=== PATIENT | female | born 1990 | race Caucasian/White ===

== ENCOUNTER 2016-11-02 12:53 | Emergency (ER) | payer OTHER ==
[~2016-11-02] VITALS: Ht 152.4 cm; Wt 75.0 kg
[~2016-11-02 12:53] MED LIST: CLIN-73 PO; MUPI22OI2 TOP; NORE1TAB75 PO
[2016-11-02 13:06] VITALS: Ht 152.4 cm; Wt 75.0 kg
[2016-11-02] MEDS ORDERED: BACITRACIN 0.9 GM OINT TOP ONE (14:30)
[2016-11-02] MEDS ORDERED: CEPH500C PO (14:40)
[2016-11-02] MEDS ORDERED: MUPI22OI2 TOP (14:40)
[2016-11-02 15:02] VITALS: BP 119/65; PULSE 75; RESP 19; TEMP 98.3
--- NOTE | 2016-11-02 15:13 | ERD ---
ER Documentation Chief Complaint Date/Time DATE: 11/02/16 TIME: 15:08 Chief Complaint BILAT FEET BLISTERS HPI This is a 26-year-old female presents to the ER with blisters on bilateral feet. Patient states that she usually gets these blisters every summer and that they are very painful. Patient has been applying bacitracin and hydrocortisone on blisters however they are not getting better. Patient was seen here 1 year ago for same complaints, and was given oral antibiotics, she states that this helped her. Patient does have an appointment with her manager of creative services on Saturday. Patient denies any fevers or chills ROS 12 point review of systems was done, all negative except per HPI. Medications Home Meds Active Scripts Cephalexin* (Cephalexin*) 500 Mg Capsule, 500 MG PO BID for 7 Days, #28 CAP Prov:ROHINI GATICA 11/02/16 Mupirocin* (Bactroban*) 2% -22 Gram Oint...g., 1 APPLIC TOP BID for 7 Days, EA Prov:ROHINI GATICA 11/02/16 Clindamycin Hcl* (Clindamycin Hcl*) 300 Mg Capsule, 300 MG PO TID for 7 Days, CAP Prov:JUDITH MARC PA-C 10/30/15 Mupirocin* (Bactroban*) 2% -22 Gram Oint...g., 1 APPLIC TOP BID for 7 Days, EA Prov:JUDITH MARC PA-C 10/30/15 Reported Medications Norethindrone A-E Estradiol (Microgestin 1.5-30) Unknown Strength Tablet, PO DAILY, TAB 12/29/13 Allergies Allergies: Coded Allergies: No Known Allergy (Verified , 11/02/16) PMhx/Soc History of Surgery: Yes ( delivery) Anesthesia Reaction: No Hx Neurological Disorder: No Hx Respiratory Disorders: No Hx Cardiac Disorders: No Hx Psychiatric Problems: No Hx Miscellaneous Medical Probl: No Hx Alcohol Use: No Hx Substance Use: No Hx Tobacco Use: No Physical Exam Vitals Vital Signs Date Time Temp Pulse Resp B/P Pulse Ox O2 Delivery O2 Flow Rate FiO2 11/02/16 15:02 98.3 75 19 119/65 100 Room Air 11/02/16 13:06 97.9 75 19 134/75 100 Physical Exam GENERAL: The patient is well developed and appropriate for usual state of health , in no apparent distress. HEENT: Atraumatic CHEST: Clear to auscultation bilaterally. There are no rales, wheezes or rhonchi. HEART: Regular rate and rhythm. No murmurs, clicks, rubs or gallops. EXTREMITIES: Equal pulses bilaterally. There is no peripheral clubbing, cyanosis or edema. No focal swelling or erythema. Full range of motion. Grossly neurovascularly intact. NEURO: Alert and oriented. SKIN: there are multiple vesicular lesions to the dorsal foot. There is no surrounding erythema, edema, warmth to the touch, discharge. Results 24 hrs Current Medications Medications (Trade) Dose Ordered Sig/Jane Route PRN Reason Start Time Stop Time Status Last Admin Dose Admin Bacitracin (Bacitracin Oint (Ud)) 1 applic ONCE ONCE TOP 11/02/16 14:30 11/02/16 14:31 DC 11/02/16 14:54 Procedures/MDM This is a 26-year-old female that presents to the ER for bilateral foot blisters. Patient will be sent home with Keflex and mupirocin as this helped patient last time and area has become even worse over the last few days. At this time patient is afebrile and well-appearing. She does not have any history of trauma, fever, chills I doubt deep space infection, osteomyelitis, acute compartment syndrome. Patient was told to follow-up with her primary care doctor or return to ER sooner if symptoms worsen. My medical decision making shared with the patient she understands and agrees with plan. Departure Diagnosis: Primary Impression: Blister of foot Condition: Stable Patient Instructions: Cellulitis Additional Instructions: Call your primary care doctor TOMORROW for an appointment during the next 1-2 days.See the doctor sooner or return here if your condition worsens before your appointment time. ROHINI GATICA Nov 02, 2016 15:13
== END 2016-11-02 15:17 | disposition home or self-care (01) ==
LOC: FTE 12:53
DX: R23.8 Other skin changes (principal)
CPT/HCPCS: 99284

== ENCOUNTER 2018-07-25 23:09 | Emergency (ER) | payer OTHER ==
[~2018-07-25] VITALS: Ht 152.4 cm; Wt 75.5 kg
[~2018-07-25 23:09] MED LIST changes: +CEPH500C PO; -CLIN-73 PO; +CLIN300C10 PO
[2018-07-25 23:12] VITALS: BP 131/60; PULSE 84; RESP 16; Ht 152.4 cm; Wt 75.5 kg
--- NOTE | 2018-07-26 02:14 | ERD ---
ER Documentation Chief Complaint Chief Complaint Upper abd pain, 13 wks preg denies bleeding HPI 28-year-old female, G2, P1 with EGA 16 weeks, presents to the emergency department, complaining of right upper quadrant abdominal pain, sharp, intermittent, 07/09. The patient denies vaginal bleeding, no urinary symptoms, no nausea or vomiting, no fever or chills. ROS All systems reviewed and are negative except as per history of present illness. Medications Home Meds Active Scripts Acetaminophen* (Tylenol*) 325 Mg Tablet, 2 TAB PO Q6 PRN for PAIN AND OR ELEVATED TEMP, #20 TAB Prov:PATRICIA YATES MD 07/26/18 Cephalexin* (Cephalexin*) 500 Mg Capsule, 500 MG PO BID for 7 Days, #28 CAP Prov:ROHINI GATICA 11/02/16 Mupirocin* (Bactroban*) 2% -22 Gram Oint...g., 1 APPLIC TOP BID for 7 Days, EA Prov:ROHINI GATICA 11/02/16 Clindamycin Hcl* (Clindamycin Hcl*) 300 Mg Capsule, 300 MG PO TID for 7 Days, CAP Prov:JUDITH MARC PA-C 10/30/15 Mupirocin* (Bactroban*) 2% -22 Gram Oint...g., 1 APPLIC TOP BID for 7 Days, EA Prov:JUDITH MARC PA-C 10/30/15 Reported Medications Norethindrone A-E Estradiol (Microgestin 1.5-30) Unknown Strength Tablet, PO DAILY, TAB 12/29/13 Allergies Allergies: Coded Allergies: No Known Allergy (Verified , 07/26/18) PMhx/Soc Medical and Surgical Hx: pt denies Medical Hx History of Surgery: Yes ( delivery) Anesthesia Reaction: No Hx Neurological Disorder: No Hx Respiratory Disorders: No Hx Cardiac Disorders: No Hx Psychiatric Problems: No Hx Miscellaneous Medical Probl: No Hx Alcohol Use: No Hx Substance Use: No Hx Tobacco Use: No Smoking Status: Never smoker FmHx Family History: No diabetes, No coronary disease Physical Exam Vitals Vital Signs Date Temp Pulse Resp B/P (MAP) Pulse Ox O2 O2 Flow FiO2 Time Delivery Rate 07/25/18 98.1 84 16 131/60 100 23:12 (83) Physical Exam Const: No acute distress Head: Atraumatic Eyes: Normal Conjunctiva ENT: Normal External Ears, Nose and Mouth. Neck: Full range of motion. No meningismus. Resp: Clear to auscultation bilaterally Cardio: Regular rate and rhythm, no murmurs Abd: Soft, non tender, non distended. Normal bowel sounds Skin: No petechiae or rashes Back: No midline or flank tenderness Ext: No cyanosis, or edema Neur: Awake and alert Psych: Normal Mood and Affect Result Diagram: 07/26/188 07/26/188 Results 24 hrs Laboratory Tests Test 07/26/18 02:38 White Blood Count 12.0 10^3/ul Red Blood Count 4.24 10^6/ul Hemoglobin 12.3 g/dl Hematocrit 36.2 % Mean Corpuscular Volume 85.4 fl Mean Corpuscular Hemoglobin 29.0 pg Mean Corpuscular Hemoglobin Concent 34.0 g/dl Red Cell Distribution Width 13.1 % Platelet Count 212 10^3/UL Mean Platelet Volume 10.9 fl Immature Granulocytes % 0.700 % Neutrophils % 71.6 % Lymphocytes % 21.0 % Monocytes % 5.3 % Eosinophils % 1.1 % Basophils % 0.3 % Nucleated Red Blood Cells % 0.0 /100WBC Immature Granulocytes # 0.080 10^3/ul Neutrophils # 8.6 10^3/ul Lymphocytes # 2.5 10^3/ul Monocytes # 0.6 10^3/ul Eosinophils # 0.1 10^3/ul Basophils # 0.0 10^3/ul Nucleated Red Blood Cells # 0.0 10^3/ul Urine Color YELLOW Urine Clarity SLIGHTLY CLOUDY Urine pH 7.0 Urine Specific [place] 1.010 Urine Ketones NEGATIVE mg/dL Urine Nitrite NEGATIVE mg/dL Urine Bilirubin NEGATIVE mg/dL Urine Urobilinogen NEGATIVE mg/dL Urine Leukocyte Esterase NEGATIVE [place]/ul Urine Microscopic RBC 1 /HPF Urine Microscopic WBC 1 /HPF Urine Squamous Epithelial Cells FEW /HPF Urine Amorphous Crystals MANY /HPF Urine Mucus FEW /HPF Urine Hemoglobin NEGATIVE mg/dL Urine Glucose NEGATIVE mg/dL Urine Total Protein NEGATIVE mg/dl Sodium Level 140 mmol/L Potassium Level 4.0 mmol/L Chloride Level 108 mmol/L Carbon Dioxide Level 24 mmol/L Anion Gap 8 Blood Urea Nitrogen 5 mg/dl Creatinine 0.53 mg/dl Est Glomerular Filtrat Rate mL/min > 60 mL/min Glucose Level 94 mg/dl Calcium Level 9.6 mg/dl Total Bilirubin 0.1 mg/dl Direct Bilirubin 0.00 mg/dl Indirect Bilirubin 0.1 mg/dl Aspartate Amino Transf (AST/SGOT) 24 IU/L Alanine Aminotransferase (ALT/SGPT) 28 IU/L Alkaline Phosphatase 74 IU/L Total Protein 7.2 g/dl Albumin 3.9 g/dl Globulin 3.30 g/dl Albumin/Globulin Ratio 1.18 Lipase 49 U/L Patient: BRIAN ABERNATHY : 1990 Age: 28 Sex: F MR #: [id number] DOS: 07/26/18 0213 Ordering MD: PATRICIA YATES MD Location: [facility] Room/Bed: PROCEDURE: US Abdomen. CLINICAL INDICATION: Pain TECHNIQUE: Multiple real-time images were acquired of the patient's abdomen and retroperitoneum utilizing a high resolution transducer. COMPARISON: None FINDINGS: The gallbladder is distended with possible mild sludge. No gallstones or gallbladder wall thickening. No pericholecystic fluid. Common bile duct prominent maximal transverse diameter 4.91 mm. No intrahepatic biliary ductal dilation. Liver normal in size maximal sagittal mention 15.66 cm. Normal liver parenchymal echogenicity without focal lesions. The pancreas was incompletely visualized however those portions that could be visualized are unremarkable. Normal portal venous flow. Right kidney normal in size maximal sagittal dimension 9.93 cm. Normal right renal parenchymal echogenicity without hydronephrosis intra renal mass or calculus. IMPRESSION: 1. Possible mild sludge within the gallbladder which is otherwise unremarkable without wall thickening, pericholecystic fluid and negative biliary ductal dilation. 2. Unremarkable liver pancreas and right kidney. RPTAT:AAJJ Physician Lucero Date Time Electronically viewed and signed by Physician Lucero on 07/26/2018 04:01 BM/ CC: PATRICIA YATES MD Procedures/MDM Vital signs stable. Differential diagnosis include but not limited to: UTI, colitis, gastroenteritis, kidney stones, irritable bowel syndrome, inflammatory bowel syndrome, malabsorption syndrome, cholelithiasis, food intolerance, medication side effect, pancreatitis, diverticulitis, bowel obstruction. Physical examination and clinical presentation consistent most likely with Biliary colic during , no evidence of acute cholecystitis.. During the ED course the patient remained stable, no new complaints. Results and clinical impression discussed with the patient who agrees with management. The patient is stable to be treated outpatient and will be discharged home; some side effects of prescribed medications (headache, rash, nausea, vomiting, diarrhea, drowsiness, habituation, bleeding, hypertension, interactions with other medications) were reviewed. The patient was informed that the evaluation in the emergency department has been done to rule out an acute emergency, therefore, chronic conditions like malignancy or other diseases have not been evaluated; therefore, the patient was instructed to follow up with the primary care provider in the next 48h. If symptoms persist, worsen or new symptoms develop, then patient should return to the ED immediately. Instructions explained and given directly by me to the patient with acknowledgment and demonstrated understanding. Disclaimer: Inadvertent spelling and grammatical errors are likely due to EHR/dictation software use and do not reflect on the overall quality of patient care. Also, please note that the electronic time recorded on this note does not necessarily reflect the actual time of the patient encounter. Departure Diagnosis: Primary Impression: Biliary sludge Additional Impression: 16 weeks gestation of Condition: Stable Additional Instructions: Thank you very much for allowing us to participate in your care. Your health and safety is our top priority at [facility]. The evaluation in the emergency department has been done to rule out an acute e mergency, therefore, chronic conditions like malignancy or other diseases have not been evaluated; therefore, you need to follow up with a primary care provider in the next 48h. If symptoms persist, worsen or new symptoms develop, then patient should return to the ED immediately. Call your primary care doctor TOMORROW for an appointment during the next 2-4 days and bring all the information provided. Have prescriptions filled and follow precisely the directions on the label. If the symptoms get worse and your provider is unavailable, return to the Emergency Department immediately. PTARICIA YATES MD Jul 26, 2018 02:14
[2018-07-26] MEDS ORDERED: ACET325T33 PO (04:10)
== END 2018-07-26 04:25 | disposition home or self-care (01) ==
LOC: FTE 23:09
DX: O99.611 Diseases of the digestive system complicating pregnancy, first trimester (principal); K83.8 Other specified diseases of biliary tract; Z3A.13 13 weeks gestation of pregnancy
CPT/HCPCS: 36415; 76705; 80053; 81001; 83690; 85025; Z7502; 81003

== ENCOUNTER 2018-09-12 13:07 | Outpatient (CLI) | payer OTHER ==
[~2018-09-12] VITALS: Ht 152.4 cm; Wt 78.6 kg
[~2018-09-12 13:07] MED LIST changes: +ACET325T33 PO
[2018-09-12] MEDS ORDERED: PNV11TAB PO (13:52)
[2018-09-12 13:53] VITALS: BP 121/60; PULSE 89; RESP 18; Ht 152.4 cm; Wt 78.6 kg
--- NOTE | 2018-09-12 17:05 | TRIAGE ---
OB Triage Datetime Report Generated by CPN: 09/12/2018 17:04 Datetime: 09/12/2018 16:37 Stage of : OB Triage Datetime: 09/12/2018 16:24 Labor Evaluation Frequency: 0 Monitor Mode: External Pattern: Normal: <= 5 Contractions in 10 Minutes Resting Tone [place]: Relaxed Comments: removed due to gestational age Pain Assessment Pain Scale: 0 Pain Presence: None/Denies Pain Type: N/A Pain Goal: 3 Pain Relief Measures: Comfort Measures Datetime: 09/12/2018 15:28 Comments: removed due to gestatiional age Pain Assessment Pain Scale: 0 Pain Presence: None/Denies Pain Type: N/A Pain Goal: 3 Pain Relief Measures: Comfort Measures Datetime: 09/12/2018 14:36 Labor Evaluation Frequency: 0 Monitor Mode: External Pattern: Normal: <= 5 Contractions in 10 Minutes Resting Tone [place]: Relaxed Comments: removed due to gestational age Pain Assessment Pain Scale: 0 Pain Presence: None/Denies Pain Type: N/A Pain Goal: 3 Pain Relief Measures: Comfort Measures Datetime: 09/12/2018 13:43 Stage of : OB Triage Datetime: 09/12/2018 13:34 Stage of : OB Triage Assessment Type: Triage Maternal Assessment Level of Consciousness: Keenly Alert, Responsive DTR's/Clonus: DTRs 2+; No Clonus Headache: Denies Blurred Vision: No Respiratory Effort: Unlabored; Regular Rhythm; Equal Expansion Breath Sounds, Left: Clear and Equal Breath Sounds, Right: Clear and Equal Nausea/Vomiting: Denies RUQ Epigastric Pain: Denies Facial Edema: None Temperature Route: Axillary Fall Risk Assessment History of Falling: (0) No Secondary Diagnosis: (0) No Ambulatory Aid: (0) Bedrest/Nurse Assist IV Therapy: (0) No Gait: (0) Normal/Bedrest/Immobile Mental Status: (0) Oriented to Own Ability Fall Score: 0 Fall Risk Score Definition: No Risk: No action required Labor Evaluation Frequency: 0 Monitor Mode: External Pattern: Normal: <= 5 Contractions in 10 Minutes Resting Tone [place]: Relaxed Heart Rate FHR Baseline Rate: 140 Monitor Mode: External US Pain Assessment Pain Scale: 0 Pain Presence: None/Denies Pain Type: N/A Pain Goal: 3 Pain Relief Measures: Comfort Measures Datetime: 09/12/2018 13:33 Time of Arrival: 09/12/2018 13:00 EGA: 22.6 Arrived By: Ambulatory Arrived From: Home Chief Complaint: C/O SOB AND GENERALIZED WEAKNESS THIS AM, DENIES PAIN, BLEEDING OR LEAKING Movement: Present Contractions: Denies/Absent Rupture of Membranes: Ruptured Vaginal Bleeding: None Vaginal Discharge: Denies Recent Sexual Intercouse: Denies Abdominal Trauma: Not Applicable Patient Complaints: Shortness of Breath Time Provider Notified: 09/12/2018 13:43 Provider Notified: ubaldo Initial Plan: TOCO, U/S
--- NOTE | 2018-09-24 20:54 | PREOPHP ---
DATE OF ADMISSION: 09/12/2018 HISTORY OF PRESENT ILLNESS: This is a 28-year-old lady, 2, para 1, EDC 01/09/2019, 23 weeks , admitted for observation. She complained of some shortness of breath and weakness in the m orning before she came, but she came to be evaluated. She had care in my [facility] office and the care was uneventful. PAST PERSONAL HISTORY: No history of diabetes, TB or asthma. ALLERGIES: NO ALLERGIES. SOCIAL HISTORY: The patient does not smoke. She does not drink. MEDICATIONS: She does not take any drugs except her iron and vitamins. GYNECOLOGIC HISTORY: She had menarche at the age of 12, every 28 days interval, 3 to 4 days duration , and moderate in amount. FAMILY HISTORY: Mother has hypertension. She is 2, para 1. Her first delivery was in 2012 by at [facility]. REVIEW OF SYSTEMS: CARDIOVASCULAR: No chest pains. RESPIRATORY: No cough. GASTROINTESTINAL: No diarrhea, no vomiting. GENITOURINARY: No dysuria. PHYSICAL EXAMINATION: GENERAL: Reveals a conscious, coherent lady in no acute distress. VITAL SIGNS: Blood pressure 120/80, pulse rate 80 per minute, respirations 16 per minute. BREASTS: Within normal limits. HEART: Within normal limits. LUNGS: Within normal limits. ABDOMEN: Soft, fundic height 24 cm per nurse and heart tones normal for both twins. PELVIC: Revealed the cervix to be closed according to the nurse. EXTREMITIES: No pedal edema. ADMITTING DIAGNOSIS: A 23 weeks' intrauterine twin with a questionable shortness of breath . The patient had an ultrasound done. She was observed in the hospital and was ordered to have IV h ydration and the ultrasound was normal. All the lab tests were normal. After observation, the patie nt felt better and she wanted to go home so she was discharged home in good and stable condition on g eneral diet and activity was restricted. She was counseled. She was instructed. She was told to ke ep appointment in the clinic. Dictated By: HUNTER BECERRA/TRENA Conf#: [id number] DID#: [id number]
== END 2018-09-12 16:50 | disposition home or self-care (01) ==
LOC: OBT 13:07 → L-D 13:09 → OBT 16:50
PROVIDERS: ATTEND Obstetrics & Gynecology
DX: O26.892 Other specified pregnancy related conditions, second trimester (principal); R06.02 Shortness of breath; Z3A.23 23 weeks gestation of pregnancy
CPT/HCPCS: 76815; Z7500; G0463

== ENCOUNTER 2018-09-12 17:09 | Emergency (ER) | payer OTHER ==
[~2018-09-12] VITALS: Ht 152.4 cm; Wt 77.8 kg
[~2018-09-12 17:09] MED LIST changes: +PNV11TAB PO
[2018-09-12 17:33] VITALS: BP 114/57; PULSE 86; RESP 20; Ht 152.4 cm; Wt 77.8 kg
--- NOTE | 2018-09-12 19:47 | PN ---
Triage Information Date/Time 09/12/18 Reason for visit: SOB and generalized weakness and numbness, only short perid time of SOB for 25min now no more Weeks of Gestation 22w4d /Para Diabetes: none Hypertention: none Additional information had similar episodes , hyperventilating Objective Vital Signs Date Temp Pulse Resp B/P (MAP) Pulse Ox O2 O2 Flow FiO2 Time Delivery Rate 09/12/18 98.4 86 20 114/57 100 17:33 (76) Heart Rate: 140's Contractions: None Results/Medications Imaging Results twin living gestation Disposition: ER Assessment/Plan A IUP 22w4d SOB generaized weakness P ER CHAPARRO COX MD Sep 12, 2018 19:47
--- NOTE | 2018-09-12 20:44 | ERD ---
ER Documentation Chief Complaint Chief Complaint PT REPORTS SOB THIS MORNING 23 WKS PREG, DENIES PAIN HPI 28-year-old female who is G2, , reportedly 23 weeks with twins, Presenting to the emergency department complaining of an episode of shortness of breath which lasted 30 minutes this morning while cleaning the house. She states her symptoms spontaneously resolved after that. She describes a similar episode which happened 2 weeks ago which she did not seek medical attention for. She denies any chest pain. She denies any unilateral leg swelling or pain. She denies any recent long travel. She denies any fevers, cough, abdominal pain, nausea, vomiting, or other symptoms at this time. ROS All systems reviewed and are negative except as per history of present illness. Medications Home Meds Reported Medications [id number] ( 19) 1 Each Tablet, 1 TAB PO DAILY, TAB 09/12/18 Discontinued Reported Medications Norethindrone A-E Estradiol (Microgestin 1.5-30) Unknown Strength Tablet, PO DAILY, TAB 12/29/13 Discontinued Scripts Acetaminophen* (Tylenol*) 325 Mg Tablet, 2 TAB PO Q6 PRN for PAIN AND OR ELEVATED TEMP, #20 TAB Prov:PATRICIA YATES MD 07/26/18 Cephalexin* (Cephalexin*) 500 Mg Capsule, 500 MG PO BID for 7 Days, #28 CAP Prov:ROHINI GATICA 11/02/16 Mupirocin* (Bactroban*) 2% -22 Gram Oint...g., 1 APPLIC TOP BID for 7 Days, EA Prov:ROHINI GATICA 11/02/16 Clindamycin Hcl* (Clindamycin Hcl*) 300 Mg Capsule, 300 MG PO TID for 7 Days, CAP Prov:JUDITH MARC PA-C 10/30/15 Mupirocin* (Bactroban*) 2% -22 Gram Oint...g., 1 APPLIC TOP BID for 7 Days, EA Prov:JUDITH MARC PA-C 10/30/15 Allergies Allergies: Coded Allergies: No Known Allergy (Verified , 07/26/18) PMhx/Soc History of Surgery: Yes ( delivery) Anesthesia Reaction: No Hx Neurological Disorder: No Hx Respiratory Disorders: No Hx Cardiac Disorders: No Hx Psychiatric Problems: No Hx Miscellaneous Medical Probl: No Hx Alcohol Use: No Hx Substance Use: No Hx Tobacco Use: No Smoking Status: Never smoker FmHx Family History: No diabetes Physical Exam Vitals Vital Signs Date Temp Pulse Resp B/P (MAP) Pulse Ox O2 O2 Flow FiO2 Time Delivery Rate 09/12/18 98.4 86 20 114/57 100 17:33 (76) Physical Exam Const: No acute distress Head: Atraumatic Eyes: Normal Conjunctiva ENT: Normal External Ears, Nose and Mouth. Neck: Full range of motion. No meningismus. Resp: Clear to auscultation bilaterally Cardio: Regular rate and rhythm, no murmurs Abd: Gravid abdomen, soft, non tender, non distended. Normal bowel sounds Skin: No petechiae or rashes Ext: No cyanosis, or edema Neur: Awake and alert Psych: Normal Mood and Affect Procedures/MDM 28-year-old female presenting to the emergency department with complaints of an episode of shortness of breath which lasted 30 minutes this morning. She states her symptoms have now completely resolved and she feels well. I doubt pulmonary embolism as the patient's vital signs are completely stable. She is not tachycardic. Her pulse ox is 100% on room air. Pulmonary examination is completely benign. Her respirations are even and nonlabored. I doubt pneumonia, aortic dissection, pneumothorax, or other emergencies. Did not feel that CT scan of the chest is indicated at this time due to patient presentation and physical examination and vital signs. I did discuss this case with attending ED physician, Dr. Renan Li who is fully informed of the patient's presentation and he was in agreement for plan to discharge with close outpatient follow-up and return to the department immediately for new or worsening or concerning symptoms. The patient understood strict return precautions prior to discharge. She was discharged home in stable condition. Departure Diagnosis: Primary Impression: Shortness of breath Condition: Stable Patient Instructions: Dyspnea Additional Instructions: Call your primary care doctor TOMORROW for an appointment during the next 1-2 days.See the doctor sooner or return here if your condition worsens before your appointment time. SEAN CHAIDEZ PA-C Sep 12, 2018 20:44
== END 2018-09-12 19:28 | disposition home or self-care (01) ==
LOC: FTE 17:09
DX: R06.02 Shortness of breath (principal); Z3A.23 23 weeks gestation of pregnancy
CPT/HCPCS: 99282

== ENCOUNTER 2018-10-22 20:14 | Outpatient (CLI) | payer OTHER ==
[~2018-10-22] VITALS: Ht 152.4 cm; Wt 81.0 kg
[~2018-10-22 20:14] MED LIST changes: -ACET325T33 PO; -CEPH500C PO; -CLIN300C10 PO; -MUPI22OI2 TOP; -NORE1TAB75 PO
[2018-10-22 20:33] VITALS: Ht 152.4 cm; Wt 81.0 kg
[2018-10-22 20:34] VITALS: BP 122/57; PULSE 93; RESP 20
--- NOTE | 2018-10-22 21:57 | TRIAGE ---
OB Triage Datetime Report Generated by CPN: 10/22/2018 21:57 Datetime: 10/22/2018 20:47 Labor Evaluation Frequency: 0 Monitor Mode: External Resting Tone [place]: Relaxed Heart Rate FHR Baseline Rate: 135 Monitor Mode: External US Variability: Moderate 6-25 bpm Accelerations: 15X15 Decelerations: None Category: Category I Comments: U/S AT BEDSIDE Datetime: 10/22/2018 20:26 Time of Arrival: 10/22/2018 20:10 EGA: 28.4 Arrived By: Ambulatory Arrived From: Home Chief Complaint: DFM BABY B FOR THE LAST 3-4 HRS Movement: Decreased Contractions: Denies/Absent Rupture of Membranes: Denies Vaginal Bleeding: None Vaginal Discharge: Denies Recent Sexual Intercouse: Denies Abdominal Trauma: Not Applicable Patient Complaints: None Time Provider Notified: 10/22/2018 20:27 Provider Notified: JOE Initial Plan: NST, CALL MD FOR ORDERS Datetime: 10/22/2018 20:25 Assessment Type: Triage Maternal Assessment Level of Consciousness: Keenly Alert, Responsive DTR's/Clonus: DTRs 2+; No Clonus Headache: Denies Blurred Vision: No Respiratory Effort: Unlabored; Regular Rhythm; Equal Expansion Breath Sounds, Left: Clear and Equal Breath Sounds, Right: Clear and Equal Nausea/Vomiting: Denies RUQ Epigastric Pain: Denies Lower Extremities Edema: None Degree: None Upper Extremities Edema: None Degree: None Facial Edema: None Fall Risk Assessment History of Falling: (0) No Secondary Diagnosis: (0) No Ambulatory Aid: (0) Bedrest/Nurse Assist IV Therapy: (0) No Gait: (0) Normal/Bedrest/Immobile Mental Status: (0) Oriented to Own Ability Fall Score: 0 Fall Risk Score Definition: No Risk: No action required Pain Assessment Pain Scale: 0 Pain Presence: None/Denies Pain Type: N/A Datetime: 09/12/2018 13:34 Fall Score: 0 Fall Risk Score Definition: No Risk: No action required Datetime: 09/12/2018 13:33 EGA: 22.6
--- NOTE | 2018-10-23 18:50 | PN ---
Triage Information Date/Time October 23, 2018 Reason for visit: DFM Weeks of Gestation 28 weeks and 4 days /Para 2 para 1 Diabetes: none Hypertention: none Additional information 28-year-old G2, P1 with twin at 28 weeks and 4 days presented with complaint of decreased movement. She denies any leaking of fluid, vaginal bleeding or contractions. Denies any complication during her course. Objective Vital Signs Date Temp Pulse Resp B/P (MAP) Pulse Ox O2 O2 Flow FiO2 Time Delivery Rate 10/22/18 98.3 93 20 122/57 Room Air 20:34 (78) Heart Rate: 130's Heart Rate Comments Category 1 and appropriate for gestational age Contractions: None Exam General appearance: Alert and oriented x4 does not appear to be in any acute distress Abdomen: Soft, gravid, fundal height consider gestational age NST: Category 1 for both twins BPP: 11/06 Results/Medications Results 24 hrs Laboratory Tests Test 10/22/18 20:15 Urine Color YELLOW Urine Clarity CLOUDY A Urine pH 7.0 Urine Specific [place] 1.011 Urine Ketones NEGATIVE Urine Nitrite NEGATIVE Urine Bilirubin NEGATIVE Urine Urobilinogen NEGATIVE Urine Leukocyte Esterase NEGATIVE Urine Microscopic RBC 0 Urine Microscopic WBC 2 Urine Squamous Epithelial Cells FEW Urine Amorphous Crystals MODERATE Urine Bacteria FEW A Urine Hemoglobin NEGATIVE Urine Glucose NEGATIVE Urine Total Protein NEGATIVE Imaging Results PROCEDURE: Biophysical profile. CLINICAL INDICATION: Pelvic pain. TECHNIQUE: Multiple sonographic images of the pelvis were obtained with transabdominal technique. Endovaginal evaluation of the cervix was also performed. COMPARISON: 09/12/2018. FINDINGS: There is twin living intrauterine gestation. The cervix is closed measuring 4.2 cm. Fetus A: Fetus A is in a breech position. The placenta is anterior in lo cation, grade 1. heart tones of 146 beats per minute are identified. The maximum vertical pocket measures 5.9 cm. breathing movements = 2 Gross body movements = 2 tone = 2 Qualitative AFV = 2 Fetus B: Fetus B is in a breech position. The placenta is posterior in location, grade 1. heart tones of 141 beats per minute are identified. The maximum vertical pocket measures 5.2 cm. breathing movements = 2 Gross body movements = 2 tone = 2 Qualitative AFV = 2 IMPRESSION: Twin living intrauterine gestation. Biophysical profiles are 8 out of 8 for both fetuses. Disposition: Discharge Assessment/Plan IUP at 28 weeks and 4 days Decreased movement testing reassuring No evidence of labor or PPROM, DC home Follow-up with primary OB office within 48 hours after discharge from the hospital discussed with patient Strict labor precautions kick count discussed with patient Patient verbalized understanding. All questions answered to patient with satisfaction. ZAHIRA MARTINEZ MD Oct 23, 2018 18:50
== END 2018-10-22 21:55 | disposition home or self-care (01) ==
LOC: L-D 20:14 → OBT 20:14
PROVIDERS: ATTEND Obstetrics & Gynecology
DX: O36.8120 Decreased fetal movements, second trimester, not applicable or unspecified (principal); Z3A.28 28 weeks gestation of pregnancy
CPT/HCPCS: 76817; 76818; 81001; Z7500; G0463